=== PATIENT | male | born 1970 | race Caucasian/White ===

== ENCOUNTER 2023-02-17 11:40 | Inpatient (IN) ==
[2023-02-17] MEDS ORDERED: MIDAZOLAM HCL 1 MG/ML 2ML VIAL IV STA ×3 (11:58→13:23)
[2023-02-17] MEDS ORDERED: SODIUM CHLORIDE 0.9% 1,000 ML IV SCH (12:00)
--- NOTE | 2023-02-17 12:10 | Emergency Department Note ---
Impression & Plan Acute alteration in mental status, Respiratory alkalosis, Hyper-reflexia ED Provider Note NAME: JAVI TORO AGE: 52 SEX: M : 1970 ARRIVES VIA: Ambulance INFORMANT: Patient, EMS ED PROVIDER(S): Joshua Malik DO CHIEF COMPLAINT: Altered mental status HPI: The patient is a 52-year-old male who presented to the emergency department by ambulance. History was difficult to obtain as the patient was confused upon arrival. The patient reportedly took extra doses of his Lexapro Lamictal and Seroquel today. He also drank significant amounts of alcohol. EMS was called reportedly by the patient. The patient was felt to be having an anxiety reaction. He was evaluated by EMS. We did receive a prehospital medical command call. The patient was given 2 mg of Ativan prior to arrival. The patient himself appears confused. He is currently denying any suicidal homicidal ideation. He denies having any headache or trauma. He denies having any fever or neck stiffness. ROS: See above HPI for pertinent positives & negatives. A total of 10 systems reviewed and were otherwise negative. PAST MEDICAL HISTORY: See Below PAST SURGICAL HISTORY: See Below FAMILY HISTORY: See Below SOCIAL HISTORY: See Below HOME MEDICATIONS: See Below ALLERGIES: See Below VITALS: See Below PHYSICAL EXAMINATION: GENERAL: The patient is awake and alert. He is very anxious and animated appearing. EYES: The conjunctivae are clear. The pupils are round and reactive. EARS, NOSE, MOUTH AND THROAT: The nose is without any evidence of any deformity. Mucous membranes are dry. NECK: The neck is nontender and supple. RESPIRATORY: Normal respiratory effort is noted there is no evidence of wheezing rhonchi or rales CARDIOVASCULAR: Regular rate and rhythm noted there no murmurs rubs or gallops normal S1 normal S2. GASTROINTESTINAL: The abdomen is soft. Abdomen is nontender. MUSCULOSKELETAL/EXTREMITIES: There is no evidence of gross deformity full range of motion is noted in the hips and shoulders. SKIN: There is no obvious evidence of any rash. There are no petechiae, pallor or cyanosis noted. NEUROLOGIC: Patient is awake alert and oriented to person and place. He is not oriented to time. There is significant neuromuscular hyperactivity. Patellar tendon reflexes are 3+ bilaterally. MEDICAL DECISION MAKING: The patient is a 52-year-old male who presented to the emergency department by ambulance for an evaluation of altered mental status. The initial history was obtained by the prehospital personnel. Further history is obtained from the patient's parents once they arrived in the emergency department. The patient does have a history of alcohol use. He also has a history of drug use. He also has a history of withdrawal from K[employer]. The patient had no reported trauma. He was very confused upon arrival to the emergency department. He was very hyperreflexic. He was confused. His skin was warm. The patient exhibited psychomotor agitation during his time in the emergency department. He was treated symptomatically with IV fluids as well as IV benzodiazepines. He was reevaluated multiple times. No definite cause for his presentation could be found. It is still possible that patient is exhibiting signs of withdrawal from some medication or possibly serotonin syndrome from his other medications that he takes chronically. I discussed the patient's condition [facility] They have agreed to evaluate the patient in the emergency department for further management and disposition. Triage Nursing notes reviewed. Prior medical records reviewed. The patient's entire medication regimen was reviewed with pharmacy Vital Signs: reviewed and remarkable for tachycardia and hypertension. Differential diagnosis: Infection, hypoglycemia, electrolyte abnormalities, overdose, toxicologic, cardiac sources, intracerebral event, neurologic, trauma, as well as other pathologies. ER treatment provided: See below Diagnostics interpreted by me: ECG: EKG was obtained in the emergency department. My interpretation is normal sinus rhythm at 94 bpm. There is no ectopy. There is no acute ST segment abnormalities noted. This was compared to a tracing from November 30, 2019. No changes were noted Cardiac Monitoring: An order was placed for continuous cardiac monitoring. The monitor shows a rate of 108 bpm with sinus tachycardia Laboratory studies: As stated above and show below. Imaging studies: See below. Radiographic imaging was reviewed by myself Consultation(s): I discussed this case with Tylor who is on-call [facility] ED COURSE: Procedures: none PDMP:reviewed and no issues Critical Care: I have personally spent greater than 55 minutes of critical care time in the direct management of this patient. This includes bedside care, interpretation of diagnostic studies, and testing, discussion with consultants, patient, and family members, and other required patient management activities. This 55 minutes is in excess of all separately billable procedures. Past Med/Surg History Medical History Encounter for screening for malignant neoplasm of rectum Encounter for screening for malignant neoplasm of colon Bilateral hip joint arthritis Degenerative arthritis of knee, bilateral History of meniscal tear [place] [facility] [place] [facility] [place] Bilateral chronic knee pain History of alcohol abuse Anxiety Surgical History No pertinent past surgical history Family History Mother Anxiety Depression Father Diabetes Grandmother (Maternal) Lymphoma Grandfather (Maternal) Lymphoma Denies family history of Ovarian cancer Prostate cancer Myocardial infarction Breast cancer Lung cancer Colorectal cancer Social History Smoking Status: Current every day smoker Tobacco Type: E-cigarettes / Vaping Age Started Using Tobacco: 18; Cigarettes Per Day: pt smoked then switched to vaping; Second Hand Exposure: No; Do You Dip or Chew Tobacco: No; Hx Alcohol Use: No (past alcohol abuse) Hx Substance Use: No Preferred Language: Romansh Communication Ability: Effective Visual Impairment: Limited Hearing Ability: Normal 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: No marital status: Current Living Situation: Spouse current occupational status: employed Feels Safe at Home: Yes Childhood Exposure to Second-Hand Smoke: Yes caffeine: Yes Dental Care, Regularly: No Physical Activity Frequency: 1-2 Times per Week Seatbelt Use: always Sunscreen Use: No Allergies Allergies Allergy/AdvReac Type Severity Reaction Status Date / Time Penicillins AdvReac Intermediate GI UPSET Unverified 01/08/22 14:11 Home Meds Home Medications Medication Instructions Recorded Confirmed lamotrigine 100 mg tablet 100 mg PO TID 12/02/21 02/17/23 (Lamictal) docusate sodium 250 mg capsule 250 mg PO HS 02/17/23 02/17/23 escitalopram oxalate 20 mg tablet 40 mg PO DAILY 02/17/23 02/17/23 hydroxyzine pamoate 25 mg capsule 25 mg PO TID PRN KRATOM WITHDRAWAL 02/17/23 02/17/23 naltrexone 50 mg tablet 50 mg PO DAILY 02/17/23 02/17/23 oxcarbazepine 300 mg tablet 300 mg PO BID 02/17/23 02/17/23 quetiapine 50 mg tablet (Seroquel) 50 mg PO HS PRN Sleep 02/17/23 02/17/23 Previous Rx's Medication Instructions Recorded atorvastatin 40 mg tablet 40 mg PO DAILY #90 tabs 04/21/22 diclofenac sodium 75 mg 75 mg PO BID PRN pain #60 tabs 08/18/22 tablet,delayed release Results & Data (ED) Vital Signs Vital Signs - 24 hr 02/17/23 11:47 02/17/23 11:49 02/17/23 11:51 Temperature 36.6 C Temperature Source Axillary Pulse Rate 100 H 100 H 100 H Pulse Rate from SpO2 Sensor 109 H Respiratory Rate 23 20 Respiratory Depth Normal Blood Pressure 168/113 H 168/113 H Blood Pressure Mean 131 131 Pulse Oximetry 94 97 Oxygen Delivery Method Room Air Sepsis Recent Fever Within 48 Hours No Sepsis New/Unexplained Change in Mental Status No Sepsis Action Taken by Nursing No Action Required 02/17/23 12:11 02/17/23 12:16 02/17/23 12:30 Temperature Temperature Source Pulse Rate 108 H 105 H Pulse Rate from SpO2 Sensor 109 H Respiratory Rate 20 18 Respiratory Depth Blood Pressure 161/118 H 168/103 H Blood Pressure Mean 132 124 Pulse Oximetry 100 97 Oxygen Delivery Method Room Air Sepsis Recent Fever Within 48 Hours Sepsis New/Unexplained Change in Mental Status Sepsis Action Taken by Nursing 02/17/23 12:53 02/17/23 13:01 02/17/23 13:23 Temperature Temperature Source Pulse Rate 102 H 96 H 106 H Pulse Rate from SpO2 Sensor 101 H 98 H 106 H Respiratory Rate 18 21 17 Respiratory Depth Blood Pressure 165/104 H 160/102 H 169/108 H Blood Pressure Mean 124 121 128 Pulse Oximetry 96 99 97 Oxygen Delivery Method Sepsis Recent Fever Within 48 Hours Sepsis New/Unexplained Change in Mental Status Sepsis Action Taken by Nursing 02/17/23 13:37 02/17/23 13:46 02/17/23 14:00 Temperature Temperature Source Pulse Rate 106 H 97 H 108 H Pulse Rate from SpO2 Sensor 104 H 99 H 107 H Respiratory Rate 32 H 22 27 H Respiratory Depth Blood Pressure 177/99 H 159/106 H 174/123 H Blood Pressure Mean 125 123 140 Pulse Oximetry 91 93 95 Oxygen Delivery Method Sepsis Recent Fever Within 48 Hours Sepsis New/Unexplained Change in Mental Status Sepsis Action Taken by Nursing 02/17/23 14:00 02/17/23 14:10 Temperature 36.8 C Temperature Source Oral Pulse Rate Pulse Rate from SpO2 Sensor Respiratory Rate Respiratory Depth Blood Pressure 174/123 H Blood Pressure Mean 139 Pulse Oximetry Oxygen Delivery Method Sepsis Recent Fever Within 48 Hours Sepsis New/Unexplained Change in Mental Status Sepsis Action Taken by Correction Medications Current Medication List: was personally reviewed by me Laboratory Data Attestation: I reviewed the patient's lab results. 02/17/23 12:00 02/17/23 12:00 Lab Results 02/17/23 02/17/23 02/17/23 Range/Units 12:00 12:18 13:03 WBC 6.38 (4.8-10.8) K/ul RBC 4.55 L (4.70-6.10) M/uL Hgb 14.5 (14.0-18.0) g/dl Hct 43.1 (42.0-52.0) % MCV 94.7 (80.0-100.0) fL MCH 31.9 (25.0-34.0) pg MCHC 33.6 (32.0-36.0) g/dL RDW Std Deviation 51.5 H (36.4-46.3) fL RDW Coeff of Venancio 16.2 H (11.5-14.5) % Plt Count 223 (130-400) K/uL MPV 9.3 L (9.4-12.4) fL Immature Gran % (Auto) 0.6 % Neut % (Auto) 64.8 % Lymph % (Auto) 20.8 % Edwards % (Auto) 11.3 % Eos % (Auto) 2.0 % Baso % (Auto) 0.5 % Neut # (Auto) 4.13 (1.40-6.50) K/uL Lymph # (Auto) 1.33 (1.20-3.40) K/uL Edwards # (Auto) 0.72 H (0.11-0.59) K/uL Eos # (Auto) 0.13 (0.00-0.50) K/uL Baso # (Auto) 0.03 (0.00-0.20) K/uL Immature Gran # (Auto) 0.04 (0.01-0.20) K/uL PT Cancelled 11.9 INR Cancelled 1.1 ABG pH (7.35-7.45) ABG pCO2 (35-46) mmHg ABG pO2 (80-95) mmHg ABG HCO3 (19-24) mmol/L ABG O2 Saturation (90-95) % ABG Base Excess (-9-1.8) mEq/L Cornell Test (Pos) Oxygen Given Sodium 139 (136-145) mmol/L Potassium 4.1 (3.5-5.1) mmol/L Chloride 103 (98-107) mmol/L Carbon Dioxide 30 (21-32) mmol/L Anion Gap 6 (3-11) BUN 10 (6-23) mg/dl Creatinine 1.13 (0.6-1.4) mg/dl Est Cr Clr Drug Dosing 82.8 ml/min Est GFR ( Amer) 87.4 ml/min Est GFR (Non-Af Amer) 75.4 ml/min BUN/Creatinine Ratio 8.8 L (10-20) Glucose 89 (70-99(Fasting)) mg/dl Calcium 8.3 L (8.6-10.3) mg/dl Magnesium 1.9 (1.7-2.4) mg/dl Total Bilirubin 0.6 (0.2-1.0) mg/dl AST 49 H (13-39) U/L ALT 45 (7-52) U/L Alkaline Phosphatase 81 (34-104) U/L Total Creatine Kinase 76 (30-223) U/L Troponin I High Sens 2.6 (0-20) pg/ml C-Reactive Protein < 0.50 (0-0.5) mg/dl Total Protein 5.7 L (6.0-8.3) gm/dl Albumin 4.1 (3.4-5.0) gm/dl Globulin 1.6 L (2.5-4.0) gm/dl Albumin/Globulin Ratio 2.6 H (0.9-2) Lipase 28 (11-82) U/L Procalcitonin < 0.05 (0-0.5) ng/ml TSH 3.998 (0.300-4.500) uIu/ml Urine Color Yellow Urine Appearance Clear (Clear) Urine pH >= 9.0 H (4.5-7.5) Ur Specific [place] 1.012 (1.000-1.030) Urine Protein Negative (Negative) Urine Glucose (UA) Negative (Negative) Urine Ketones Negative (Negative) Urine Blood Negative (Negative) Urine Nitrite Negative (Negative) Urine Bilirubin Negative (Negative) Urine Urobilinogen Negative (Negative) Ur Leukocyte Esterase Trace H (Negative) Urine WBC (Auto) 1-5 (0-5) /hpf Urine RBC (Auto) 0-4 (0-4) /hpf U Hyaline Cast (Auto) 0 (0-5) /lpf U Epithel Cells (Auto) >30 H (0-5) /lpf Urine Bacteria (Auto) Negative (Negative) Ur Renal Epithelial Cell Not Reportable Salicylates < 3.0 L (3.0-30) mg/dl Urine Opiates Screen Neg (Neg) Ur Methadone, Qual Neg (Neg) Acetaminophen < 3 L (10-30) ug/ml Urine Barbiturates Neg (Neg) Ur Phencyclidine (PCP) Neg (Neg) U Amphetamin/Meth Scrn Neg (Neg) MDMA (Ecstasy) Screen Neg (Neg) U Benzodiazepines Scrn Neg (Neg) Ur Cocaine Metabolite Neg (Neg) U Marijuana (THC) Screen Neg (Neg) Ethyl Alcohol mg/dL < 10.0 (<10.0) mg/dl 02/17/23 Range/Units 13:59 WBC (4.8-10.8) K/ul RBC (4.70-6.10) M/uL Hgb (14.0-18.0) g/dl Hct (42.0-52.0) % MCV (80.0-100.0) fL MCH (25.0-34.0) pg MCHC (32.0-36.0) g/dL RDW Std Deviation (36.4-46.3) fL RDW Coeff of Venancio (11.5-14.5) % Plt Count (130-400) K/uL MPV (9.4-12.4) fL Immature Gran % (Auto) % Neut % (Auto) % Lymph % (Auto) % Edwards % (Auto) % Eos % (Auto) % Baso % (Auto) % Neut # (Auto) (1.40-6.50) K/uL Lymph # (Auto) (1.20-3.40) K/uL Edwards # (Auto) (0.11-0.59) K/uL Eos # (Auto) (0.00-0.50) K/uL Baso # (Auto) (0.00-0.20) K/uL Immature Gran # (Auto) (0.01-0.20) K/uL PT INR ABG pH 7.52 H* (7.35-7.45) ABG pCO2 33 L (35-46) mmHg ABG pO2 126 H (80-95) mmHg ABG HCO3 27 H (19-24) mmol/L ABG O2 Saturation 98.9 H (90-95) % ABG Base Excess 4.3 H (-9-1.8) mEq/L Cornell Test Pos (Pos) Oxygen Given ROOM AIR Sodium (136-145) mmol/L Potassium (3.5-5.1) mmol/L Chloride (98-107) mmol/L Carbon Dioxide (21-32) mmol/L Anion Gap (3-11) BUN (6-23) mg/dl Creatinine (0.6-1.4) mg/dl Est Cr Clr Drug Dosing ml/min Est GFR ( Amer) ml/min Est GFR (Non-Af Amer) ml/min BUN/Creatinine Ratio (10-20) Glucose (70-99(Fasting)) mg/dl Calcium (8.6-10.3) mg/dl Magnesium (1.7-2.4) mg/dl Total Bilirubin (0.2-1.0) mg/dl AST (13-39) U/L ALT (7-52) U/L Alkaline Phosphatase (34-104) U/L Total Creatine Kinase (30-223) U/L Troponin I High Sens (0-20) pg/ml C-Reactive Protein (0-0.5) mg/dl Total Protein (6.0-8.3) gm/dl Albumin (3.4-5.0) gm/dl Globulin (2.5-4.0) gm/dl Albumin/Globulin Ratio (0.9-2) Lipase (11-82) U/L Procalcitonin (0-0.5) ng/ml TSH (0.300-4.500) uIu/ml Urine Color Urine Appearance (Clear) Urine pH (4.5-7.5) Ur Specific [place] (1.000-1.030) Urine Protein (Negative) Urine Glucose (UA) (Negative) Urine Ketones (Negative) Urine Blood (Negative) Urine Nitrite (Negative) Urine Bilirubin (Negative) Urine Urobilinogen (Negative) Ur Leukocyte Esterase (Negative) Urine WBC (Auto) (0-5) /hpf Urine RBC (Auto) (0-4) /hpf U Hyaline Cast (Auto) (0-5) /lpf U Epithel Cells (Auto) (0-5) /lpf Urine Bacteria (Auto) (Negative) Ur Renal Epithelial Cell Salicylates (3.0-30) mg/dl Urine Opiates Screen (Neg) Ur Methadone, Qual (Neg) Acetaminophen (10-30) ug/ml Urine Barbiturates (Neg) Ur Phencyclidine (PCP) (Neg) U Amphetamin/Meth Scrn (Neg) MDMA (Ecstasy) Screen (Neg) U Benzodiazepines Scrn (Neg) Ur Cocaine Metabolite (Neg) U Marijuana (THC) Screen (Neg) Ethyl Alcohol mg/dL (<10.0) mg/dl Administered Medications Discontinued Medications Sodium Chloride (Nss) 1,000 mls @ 999 mls/hr IV .[id number] MONIE Stop: 02/17/23 13:00 Last Admin: 02/17/23 12:05 Dose: 999 mls/hr Documented By: JORGE Midazolam HCl (Midazolam Hcl 1 Mg/Ml 2ml Vial) 1 mg IV NOW STA Stop: 02/17/23 11:59 Last Admin: 02/17/23 12:05 Dose: 1 mg Documented By: JORGE Midazolam HCl (Midazolam Hcl 1 Mg/Ml 2ml Vial) 1 mg IV NOW STA Stop: 02/17/23 12:26 Last Admin: 02/17/23 12:28 Dose: 1 mg Documented By: JORGE Midazolam HCl (Midazolam Hcl 1 Mg/Ml 2ml Vial) 2 mg IV NOW STA Stop: 02/17/23 13:24 Last Admin: 02/17/23 13:30 Dose: 2 mg Documented By: JORGE Imaging Data Attestation: I personally reviewed and interpreted this imaging study as follows: My Impression: 1 view chest x-ray was obtained in the emergency department. My interpretation is no free air, final report below. CT the brain was obtained in the emergency department. My interpretation is no intracranial hemorrhage or mass effect, final report below. Radiologist's Impression: Chest X-Ray 02/17/23 11:59 XR chest 1V portable HISTORY: Overdose. COMPARISON: None. FINDINGS: No pneumothorax. No pleural effusions. There are low lung volumes. No acute fractures. No evidence for pulmonary edema. The cardiac silhouette is mildly enlarged. Small patchy left basilar densities are noted. The right lung is clear. IMPRESSION: Low lung volumes with patchy left basilar densities. This may represent atelectasis or a developing pneumonia. ACT 112: Negative or not required by law. Electronically signed by: Kalia Evans M.D. 02/17/2023 12:[address] 02/17/23 11:59 CT OF THE HEAD WITHOUT CONTRAST CLINICAL HISTORY: Altered mental status. COMPARISON STUDY: No previous studies for comparison. CT DOSE: 1874.62 mGy.cm TECHNIQUE: Helical axial images of the head were obtained without IV contrast. Automated exposure control was utilized for the study. A dose lowering technique was utilized adhering to the principles of ALARA. FINDINGS: This exam is moderately compromised by motion artifact. No acute intracranial hemorrhage, midline shift or mass effect is present. The ventricular system is unremarkable. The basal cisterns are patent. No extra- axial collections are present. There are no findings to suggest acute dural sinus thrombosis or acute territorial infarct. No significant calvarial abnormalities are present. Visualized portions of the sinuses and mastoid air cells are clear. IMPRESSION: Study moderately compromised by motion artifact. No acute intracranial findings. ACT 112: Negative or not required by law. Electronically signed by: Yonis De Leon M.D. 02/17/2023 1:02 PM Discharge Plan Visit Data Chief Complaint: Alcohol Intoxication Stated Complaint: SOB, ETOH, ANXIETY ED Provider: Joshua Malik Discharge Problem: Acute alteration in mental status, Respiratory alkalosis, Hyper-reflexia Patient Disposition: Being Evaluated by Hospitalist Forms Stand Alone Forms: My [facility] [employer] Universal Process Prescriptions Prescriptions: No Action atorvastatin 40 mg tablet 40 mg PO DAILY Qty: 90 3RF diclofenac sodium 75 mg tablet,delayed release (DR/EC) 75 mg PO BID PRN (Reason: pain) Qty: 60 2RF lamotrigine [Lamictal] 100 mg tablet 100 mg PO TID escitalopram oxalate 20 mg tablet 40 mg PO DAILY quetiapine [Seroquel] 50 mg tablet 50 mg PO HS PRN (Reason: Sleep) Rx Instructions: 50-100MG HS PRN oxcarbazepine 300 mg Tablet 300 mg PO BID hydroxyzine pamoate 25 mg Capsule 25 mg PO TID PRN (Reason: KRATOM WITHDRAWAL) naltrexone 50 mg Tablet 50 mg PO DAILY docusate sodium 250 mg Capsule 250 mg PO HS Referrals Referrals: Bertrand Suarez DO [Primary Care Provider] -
[2023-02-17 12:23] LABS: Basophils # (auto) 0.03 K/uL (0.00-0.20); Basophils % (auto) 0.5 %; Eosinophils # (auto) 0.13 K/uL (0.00-0.50); Hematocrit (blood only) 43.1 % (42.0-52.0); Hemoglobin 14.5 g/dl (14.0-18.0); Immature Granulocytes # (auto) 0.04 K/uL (0.01-0.20); Immature Granulocytes % (auto) 0.6 %; Lymphocytes # (auto) 1.33 K/uL (1.20-3.40); Lymphocytes % (auto) 20.8 %; Mean Corpuscular Hemoglobin 31.9 pg (25.0-34.0); Mean Corpuscular Hgb Conc 33.6 g/dL (32.0-36.0); Mean Corpuscular Volume 94.7 fL (80.0-100.0); Mean Platelet Volume 9.3 fL (9.4-12.4); Monocytes # (auto) 0.72 K/uL (0.11-0.59); Monocytes % (auto) 11.3 %; Neutrophils # (auto) 4.13 K/uL (1.40-6.50); Neutrophils % (auto) 64.8 %; Platelet Count 223 K/uL (130-400); RDW Coefficient of Variation 16.2 % (11.5-14.5); RDW Standard Deviation 51.5 fL (36.4-46.3); Red Blood Count 4.55 M/uL (4.70-6.10); White Blood Count 6.38 K/ul (4.8-10.8)
--- NOTE | 2023-02-17 12:32 | XRay Report ---
XR chest 1V portable HISTORY: Overdose. COMPARISON: None. FINDINGS: No pneumothorax. No pleural effusions. There are low lung volumes. No acute fractures. No e vidence for pulmonary edema. The cardiac silhouette is mildly enlarged. Small patchy left basilar den sities are noted. The right lung is clear. IMPRESSION: Low lung volumes with patchy left basilar densities. This may represent atelectasis or a developing p neumonia. ACT 112: Negative or not required by law. Electronically signed by: Kalia Evans M.D. 02/17/2023 12:31 PM
[2023-02-17 12:38] LABS: Appearance Urine Clear (Clear); Bacteria Urine Automated Negative (Negative); Bilirubin Urine Negative (Negative); Blood Urine Negative (Negative); Cast Urine Automated 0 /lpf (0-5); Color Urine Yellow; Epithelial Cell Urine Auto >30 /lpf (0-5); Glucose Urine UA Negative (Negative); Ketones Urine Negative (Negative); Leukocyte Esterase Urine Trace (Negative); Nitrite Urine Negative (Negative); Protein Urine Negative (Negative); RBC Urine Automated 0-4 /hpf (0-4); Specific Gravity Urine 1.012 (1.000-1.030); Urobilinogen Urine Negative (Negative); pH Urine >= 9.0 (4.5-7.5)
[2023-02-17 12:45] LABS: Acetaminophen < 3 ug/ml (10-30); Salicylate < 3.0 mg/dl (3.0-30)
[2023-02-17 12:48] LABS: Alanine Aminotransferase 45 U/L (7-52); Albumin Globulin Ratio 2.6 (0.9-2); Albumin Level 4.1 gm/dl (3.4-5.0); Alkaline Phosphatase 81 U/L (34-104); Anion Gap 6 (3-11); BUN Creatinine Ratio 8.8 (10-20); Bilirubin,Total 0.6 mg/dl (0.2-1.0); Blood Urea Nitrogen 10 mg/dl (6-23); C Reactive Protein < 0.50 mg/dl (0-0.5); Calcium 8.3 mg/dl (8.6-10.3); Carbon Dioxide 30 mmol/L (21-32); Chloride 103 mmol/L (98-107); Creatine Kinase 76 U/L (30-223); Creatinine Clr Calc Pharmacy 82.8 ml/min; Est GFR (African American) 87.4 ml/min; Est GFR (Non-African American) 75.4 ml/min; Globulin 1.6 gm/dl (2.5-4.0); Glucose 89 mg/dl (70-99(Fasting)); Lipase 28 U/L (11-82); Magnesium 1.9 mg/dl (1.7-2.4); Sodium 139 mmol/L (136-145); Total Protein 5.7 gm/dl (6.0-8.3)
[2023-02-17 12:49] LABS: Troponin I High Sensitivity 2.6 pg/ml (0-20)
[2023-02-17 12:55] LABS: Potassium 4.1 mmol/L (3.5-5.1)
[2023-02-17 12:58] LABS: Thyroid Stimulating Hormone 3.998 uIu/ml (0.300-4.500)
[2023-02-17 13:00] LABS: Aspartate Aminotransferase 49 U/L (13-39)
--- NOTE | 2023-02-17 13:03 | CT Scan Report ---
CT OF THE HEAD WITHOUT CONTRAST CLINICAL HISTORY: Altered mental status. COMPARISON STUDY: No previous studies for comparison. CT DOSE: 1874.62 mGy.cm TECHNIQUE: Helical axial images of the head were obtained without IV contrast. Automated exposure con trol was utilized for the study. A dose lowering technique was utilized adhering to the principles o f ALARA. FINDINGS: This exam is moderately compromised by motion artifact. No acute intracranial hemorrhage, m idline shift or mass effect is present. The ventricular system is unremarkable. The basal cisterns ar e patent. No extra-axial collections are present. There are no findings to suggest acute dural sinus thrombosis or acute territorial infarct. No significant calvarial abnormalities are present. Visualiz ed portions of the sinuses and mastoid air cells are clear. IMPRESSION: Study moderately compromised by motion artifact. No acute intracranial findings. ACT 112: Negative or not required by law. Electronically signed by: Yonis De Leon M.D. 02/17/2023 1:02 PM
[2023-02-17 13:36] LABS: Amphetamines+Metham, Urine Neg (Neg); Barbiturates, Urine Neg (Neg); Benzodiazepine, Urine Neg (Neg); Cocaine, Urine Neg (Neg); MDMA (Ecstacy), Urine Neg (Neg); Marijuana, Urine Neg (Neg); Methadone, Urine Neg (Neg); Opiate, Urine Neg (Neg); Phencyclidine, Urine Neg (Neg)
[2023-02-17 13:53] LABS: INR 1.1 (0.9-1.1); Prothrombin Time 11.9 Seconds (9.0-12.0)
--- NOTE | 2023-02-17 13:55 | History & Physical Report ---
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 He reportedly took 12 extra pills of Lexapro, Seroquel, Lamictal the morning of 02/17; however, we are unable to confirm this; Lamictal level ordered, pending He also uses kratom Clinically, patient exhibits psychomotor agitation with twitching on exam; not oriented to location or birthday Head CT was compromised due to motion artifact, but found no acute intracranial findings Ammonia level ordered, pending LFTs ordered, pending Tox screen negative UA negative Procalcitonin WNL Lipase WNL Glucose WNL at 89 TSH WNL ABG pH 7.52, pCO2 low 33, and HCO3 high 27 on arrival Trend VBG q4h Hold all home medications Banana bag x 1; vitamin B1 200mg given in the ED Constipation regimen added Seizure precautions 1:1 precautions Psych consulted A.m. CBC, BMP, PT/INR, mag (2) History of alcohol abuse: Plan: Unsure of when patient's last drink was AWSS protocols with lorazepam as needed for agitation Plan Disposition: Admit to PCU telemetry Full code Keep n.p.o. for now VTE PPx: SCDs History of Present Illness Chief Complaint: Altered mental status Primary Care Provider: DO Deonte Bang is a 52-year-old male with PMH of alcohol abuse, anxiety, depression, spinal stenosis, and HLD. He presented via EMS for altered mental status the morning of 02/17. Patient is a unreliable historian, and is unable to report what happened this morning, explained if he took anything, will confirm/deny thoughts of self-harm. He is responsive to some questions; oriented to name and month, but not location or birthday. He is jittery and agitated in the hospital bed despite receiving Versed 4 mg, as well as lorazepam 2 mg en route. Patient's parents are present at the bedside and provides most of the history. They report that he has no history of stroke, seizure, or epilepsy. They do not know of any recent head injuries, falls, or past similar episodes to what is currently happening. Uncertain if he took his morning medications today. Parents report that the patient has been living with them for the past month after from his ([place]) 1 month ago; he also has history of mental trauma, per parents. Patient is hypertensive at 180/123, mildly tachycardic at 108, and mildly tachypneic at 25 RPM at time of admission. Patient received lorazepam 2 mg via EMS en route. ED course: Midazolam 4 mg NSS 1000 mL Unable to obtain ROS given patient's current mental status. However, patient's parents deny that he has been complaining of any fever, headache, cough, dizziness, chest pain, SOB, abdominal pain, N/V, or urinary symptoms over the past week. Allergies Allergy/AdvReac Type Severity Reaction Status Date / Time Penicillins AdvReac Intermediate GI UPSET Unverified 01/08/22 14:11 Home Medications Medication Instructions Recorded Confirmed Type lamotrigine 100 mg tablet 100 mg PO TID 12/02/21 02/17/23 History (Lamictal) atorvastatin 40 mg tablet 40 mg PO DAILY #90 tabs 04/21/22 02/17/23 Rx diclofenac sodium 75 mg 75 mg PO BID PRN pain #60 tabs 08/18/22 02/17/23 Rx tablet,delayed release docusate sodium 250 mg capsule 250 mg PO HS 02/17/23 02/17/23 History escitalopram oxalate 20 mg tablet 40 mg PO DAILY 02/17/23 02/17/23 History hydroxyzine pamoate 25 mg capsule 25 mg PO TID PRN KRATOM WITHDRAWAL 02/17/23 02/17/23 History naltrexone 50 mg tablet 50 mg PO DAILY 02/17/23 02/17/23 History oxcarbazepine 300 mg tablet 300 mg PO BID 02/17/23 02/17/23 History quetiapine 50 mg tablet (Seroquel) 50 mg PO HS PRN Sleep 02/17/23 02/17/23 History Past Med/Surg History Medical History Encounter for screening for malignant neoplasm of rectum Encounter for screening for malignant neoplasm of colon Bilateral hip joint arthritis Degenerative arthritis of knee, bilateral History of meniscal tear Per [place] [facility] [place] Bilateral chronic knee pain History of alcohol abuse Anxiety Surgical History No pertinent past surgical history Family History Mother Anxiety Depression Father Diabetes Grandmother (Maternal) Lymphoma Grandfather (Maternal) Lymphoma Denies family history of Ovarian cancer Prostate cancer Myocardial infarction Breast cancer Lung cancer Colorectal cancer Social History Smoking Status: Current every day smoker Tobacco Type: E-cigarettes / Vaping Age Started Using Tobacco: 18; Cigarettes Per Day: pt smoked then switched to vaping; Second Hand Exposure: No; Do You Dip or Chew Tobacco: No; Hx Alcohol Use: Yes Alcohol type: beer Hx Substance Use: No Preferred Language: Citizen Of [place] Communication Ability: Effective Visual Impairment: Limited Hearing Ability: Normal Visual Stylist Required: No Beliefs That Will Affect Care: None marital status: Current Living Situation: Family current occupational status: employed Other Information That Helps Us Care for You: No Feels Safe at Home: Yes Safety Concerns: Feels Safe At This Time Childhood Exposure to Second-Hand Smoke: Yes caffeine: Yes Dental Care, Regularly: No Physical Activity Frequency: 1-2 Times per Week Seatbelt Use: always Sunscreen Use: No Review of Systems Review of Systems: See HPI above Physical Exam Physical Exam: General: Patient is agitated, jittery during bed; no rigidity; confused; well- nourished; SpO2 96% on RA HEENT: normocephalic, atraumatic; no scleral icterus; PERRLA; pupils are of normal size; moist mucus membrane; vision and hearing intact Neck: supple; no lymphadenopathy; trachea midline Skin: warm, dry without signs of tenting; no cyanosis; no rashes, bruising, lesions, or erythema noted; not hot to touch CV: chest wall NTP; RRR; S1/S2 normal; no murmurs/rubs/gallops; pulses intact and symmetric at radial, DP, and PT Lungs: no acute respiratory distress; symmetrical chest wall expansion; clear breath sounds across all lung santos w/o adventitious sounds; no wheezing ABD: Soft, NTP; BS present; no rebound/guarding; no ascites; no distention MSK: Jittery, agitated movements while lying supine in bed; no edema noted in the LEs b/l, however scraping and bruises noted on the shins bilaterally Neuro: Oriented to name and month, but not birthday or location; responds to some questions and commands, such as wiggling toes; unable to assess sensation; negative clonus Results & Data Results & Data Vital Signs (Past 12 Hours) Vital Signs Temp Pulse Resp BP Pulse Ox O2 Del Method 02/17/23 13:37 106 H 32 H 177/99 H 91 02/17/23 13:23 106 H 17 169/108 H 97 02/17/23 13:01 96 H 21 160/102 H 99 02/17/23 12:53 102 H 18 165/104 H 96 02/17/23 12:30 105 H 18 168/103 H 02/17/23 12:16 108 H 20 161/118 H 97 02/17/23 12:11 100 Room Air 02/17/23 11:51 36.6 C 100 H 20 168/113 H 97 Room Air 02/17/23 11:49 100 H 23 168/113 H 94 02/17/23 11:47 100 H Laboratory Results Abnormal lab results 02/17/23 02/17/23 Range/Units 12:00 12:18 RBC 4.55 L (4.70-6.10) M/uL RDW Std Deviation 51.5 H (36.4-46.3) fL RDW Coeff of Venancio 16.2 H (11.5-14.5) % MPV 9.3 L (9.4-12.4) fL Bertie # (Auto) 0.72 H (0.11-0.59) K/uL BUN/Creatinine Ratio 8.8 L (10-20) Calcium 8.3 L (8.6-10.3) mg/dl AST 49 H (13-39) U/L Total Protein 5.7 L (6.0-8.3) gm/dl Globulin 1.6 L (2.5-4.0) gm/dl Albumin/Globulin Ratio 2.6 H (0.9-2) Urine pH >= 9.0 H (4.5-7.5) Ur Leukocyte Esterase Trace H (Negative) U Epithel Cells (Auto) >30 H (0-5) /lpf Salicylates < 3.0 L (3.0-30) mg/dl Acetaminophen < 3 L (10-30) ug/ml Diagnostic Findings Chest X-Ray 02/17/23 11:59 XR chest 1V portable HISTORY: Overdose. COMPARISON: None. FINDINGS: No pneumothorax. No pleural effusions. There are low lung volumes. No acute fractures. No evidence for pulmonary edema. The cardiac silhouette is mildly enlarged. Small patchy left basilar densities are noted. The right lung is clear. IMPRESSION: Low lung volumes with patchy left basilar densities. This may represent atelectasis or a developing pneumonia. ACT 112: Negative or not required by law. Electronically signed by: Kalia Evans M.D. 02/17/2023 12:[address] 02/17/23 11:59 CT OF THE HEAD WITHOUT CONTRAST CLINICAL HISTORY: Altered mental status. COMPARISON STUDY: No previous studies for comparison. CT DOSE: 1874.62 mGy.cm TECHNIQUE: Helical axial images of the head were obtained without IV contrast. Automated exposure control was utilized for the study. A dose lowering technique was utilized adhering to the principles of ALARA. FINDINGS: This exam is moderately compromised by motion artifact. No acute intracranial hemorrhage, midline shift or mass effect is present. The ventricular system is unremarkable. The basal cisterns are patent. No extra- axial collections are present. There are no findings to suggest acute dural sinus thrombosis or acute territorial infarct. No significant calvarial abnorm alities are present. Visualized portions of the sinuses and mastoid air cells are clear. IMPRESSION: Study moderately compromised by motion artifact. No acute intracranial findings. ACT 112: Negative or not required by law. Electronically signed by: Yonis De Leon M.D. 02/17/2023 1:02 PM Code Status & VTE Plan Code Status Full code VTE Prophylaxis Plan VTE Prophylaxis will be ordered: Yes Supervising Physician Co-Signing Physician Notes Patient seen and examined, chart reviewed, case discussed with ANUPAMA Sarabia PA-C and I agree with the assessment and plan as above except as otherwise noted Labs and images reviewed Deonte is a 52-year-old male with a past medical history of anxiety/depression, alcohol abuse, hypertension who presents with agitated confusion. He reportedly took a large amount of kratom the evening before, reports he also takes hydroxyzine when he is not on kratom or withdrawing from this and took a dose of this last night. He denies any medication overdoses intentional or unintentional, denies SI/HI, endorses that he has a history of anxiety/depression but that the kratom normally helps with this. He reports he did drink some alcohol last night or maybe this morning but does not remember how much. Medical alcohol on admission is negative. Denies history of seizures and DTs, he is oriented to name, month, and answer some questions appropriately however he is not oriented to year and is a poor historian. Denies recreational drug use or substance coingestion with kratom recently. Denies headache. Was able to bring his chin to his chest without pain or nuchal rigidity, no headache. He is not hyperreflexic and he is not diaphoretic. He is not hyperthermic. He reports he thinks he feels better than, again but does not quite remember. Denies chest pain, chest pressure, shortness of breath, difficulty breathing. Feels constipated but denies abdominal pain. At bedside abdomen is soft, nontender. No spontaneous inducible clonus is present, no ocular clonus. Skin is dry. Pupils are not dilated. Respiration rate decreasing following benzo administration. Does not appear consistent with serotonin syndrome/does not meet Matheus criteria at time of admission,? Excitatory toxidrome with both kratom and hydroxyzine ingestion. Patient has a mixed respiratory/metabolic alkalosis, hyperventilation is improving post b enzos. DDx does include alcohol withdrawal, alcohol level is negative on admission. Patient denies history of alcohol withdrawal in the past. Has received 4 mg of Versed total, 2 mg Ativan prehospital. He is continued on a WSS active protocol to both, for potential alcohol withdrawal and excitatory toxidrome. No signs of meningitis, or infectious etiology at time of admission. Agree with assessment and management as noted PG Care Time/CCT Total # of Minutes Spent Total Time Spent with Patient: Total time spent is greater than 50% in coordination of care (as documented) at patient's floor/unit and/or counseling patient: [place] [address] INT INP/OBS CARE 3/75MIN Patient Type Established History Comprehensive Exam Comprehensive Medical Decision Making High Complexity Diagnoses Altered mental status R41.82 History of alcohol abuse F10.11
[2023-02-17] MEDS ORDERED: THIAMINE HCL 200 MG in SODIUM CHLORIDE 0.9% 50 ML IV STA (14:07)
[2023-02-17 14:12] LABS: Allen Test Pos (Pos); Base Excess ABG 4.3 mEq/L (-9-1.8); HCO3 ABG 27 mmol/L (19-24); Oxygen Saturation ABG 98.9 % (90-95); PCO2 ABG 33 mmHg (35-46); PO2 ABG 126 mmHg (80-95)
[2023-02-17 14:16] LABS: pH ABG 7.52 (7.35-7.45)
[2023-02-17] MEDS ORDERED: MULTI-VITAMIN INFUSION 10 ML, THIAMINE HCL 100 MG, FOLIC ACID 1 MG in SODIUM CHLORIDE 0... IV ONE (15:00)
[2023-02-17 16:43] LABS: Albumin Level 3.6 gm/dl (3.4-5.0); Bilirubin Direct 0.1 mg/dl (0-0.2); Bilirubin,Total 0.8 mg/dl (0.2-1.0); Total Protein 5.1 gm/dl (6.0-8.3)
[2023-02-17] MEDS ORDERED: LORazepam 2 MG in SYRINGE 1 ML IV PRN (17:27)
[2023-02-17] MEDS ORDERED: LORazepam 3 MG in SYRINGE 1.5 ML IV PRN (17:27)
[2023-02-17] MEDS ORDERED: bisacodyL 10 MG SUPP PR PRN (17:27)
[2023-02-17] MEDS ORDERED: Ativan IV Alcohol Withdrawal--Active Protocol IV PRN (17:27)
[2023-02-17] MEDS ORDERED: ACETAMINOPHEN 325 MG TAB PO PRN (17:27)
[2023-02-17 18:38] LABS: Base Excess VBG 2.8 mEq/L; HCO3 VBG 27 mmol/L; Oxygen Saturation VBG 84.9 %; PCO2 VBG 40 mmHg (38-50); PO2 VBG 54 mmHg; pH VBG 7.44 (7.36-7.41)
[2023-02-17] MEDS: DOCUSATE SODIUM/SENNA 50/8.6MG TAB PO SCH (20:29)
[2023-02-17 23:02] LABS: HCO3 VBG 28 mmol/L; Oxygen Saturation VBG 94.5 %; PCO2 VBG 37 mmHg (38-50); PO2 VBG 67 mmHg; pH VBG 7.48 (7.36-7.41)
[2023-02-18 02:31] LABS: HCO3 VBG 27 mmol/L; Oxygen Saturation VBG 82.7 %; PCO2 VBG 39 mmHg (38-50); PO2 VBG 48 mmHg; pH VBG 7.45 (7.36-7.41)
[2023-02-18 02:38] LABS: Basophils # (auto) 0.03 K/uL (0.00-0.20); Basophils % (auto) 0.4 %; Eosinophils # (auto) 0.04 K/uL (0.00-0.50); Eosinophils % (auto) 0.5 %; Hematocrit (blood only) 40.8 % (42.0-52.0); Hemoglobin 14.2 g/dl (14.0-18.0); Immature Granulocytes # (auto) 0.03 K/uL (0.01-0.20); Immature Granulocytes % (auto) 0.4 %; Lymphocytes # (auto) 1.22 K/uL (1.20-3.40); Lymphocytes % (auto) 14.7 %; Mean Corpuscular Hemoglobin 32.2 pg (25.0-34.0); Mean Corpuscular Hgb Conc 34.8 g/dL (32.0-36.0); Mean Corpuscular Volume 92.5 fL (80.0-100.0); Mean Platelet Volume 9.2 fL (9.4-12.4); Monocytes # (auto) 0.74 K/uL (0.11-0.59); Monocytes % (auto) 8.9 %; Neutrophils # (auto) 6.23 K/uL (1.40-6.50); Neutrophils % (auto) 75.1 %; Platelet Count 226 K/uL (130-400); RDW Coefficient of Variation 15.9 % (11.5-14.5); RDW Standard Deviation 49.9 fL (36.4-46.3); Red Blood Count 4.41 M/uL (4.70-6.10); White Blood Count 8.29 K/ul (4.8-10.8)
[2023-02-18 02:52] LABS: BUN Creatinine Ratio 9.2 (10-20); Creatinine Clr Calc Pharmacy 108.2 ml/min; Est GFR (African American) 116.6 ml/min; Est GFR (Non-African American) 100.6 ml/min; Magnesium 1.9 mg/dl (1.7-2.4); Potassium 3.5 mmol/L (3.5-5.1)
[2023-02-18 03:10] LABS: INR 1.1 (0.9-1.1); Prothrombin Time 11.5 Seconds (9.0-12.0)
[2023-02-18] MEDS: POLYETHYLENE (MIRALAX) 17 GM PACK PO SCH (08:59)
[2023-02-18] MEDS: LORazepam 1 MG in SYRINGE 0.5 ML IV PRN ×2 (13:09→19:25)
--- NOTE | 2023-02-18 14:43 | Discharge Summary ---
Date of Service February 19, 2023 Admission HPI Per Admitting Provider Deonte is a 52-year-old male with PMH of alcohol abuse, anxiety, depression, spinal stenosis, and HLD. He presented via EMS for altered mental status the morning of 02/17. Patient is a unreliable historian, and is unable to report what happened this morning, explained if he took anything, will confirm/deny thoughts of self-harm. He is responsive to some questions; oriented to name and month, but not location or birthday. He is jittery and agitated in the hospital bed despite receiving Versed 4 mg, as well as lorazepam 2 mg en route. Patient's parents are present at the bedside and provides most of the history. They report that he has no history of stroke, seizure, or epilepsy. They do not know of any recent head injuries, falls, or past similar episodes to what is currently happening. Uncertain if he took his morning medications today. Parents report that the patient has been living with them for the past month after from his ([place]) 1 month ago; he also has history of mental trauma, per parents. Patient is hypertensive at 180/123, mildly tachycardic at 108, and mildly tachypneic at 25 RPM at time of admission. Patient received lorazepam 2 mg via EMS en route. ED course: Midazolam 4 mg NSS 1000 mL Unable to obtain ROS given patient's current mental status. However, patient's parents deny that he has been complaining of any fever, headache, cough, dizziness, chest pain, SOB, abdominal pain, N/V, or urinary symptoms over the past week. Principal Diagnosis Excitatory Toxidrome Discharge Exam General: A&Ox3. NAD. Cooperative. TP linear, goal direct. Denies SI/HI/AH/VH. Not responding to verbal stimula. Speech with normal volume and prosody. HEENT: Atraumatic, normocephalic. PERLAA. EoM intact. Vision./hearing intact Pulm: CTAB A&P. -wheezes, -rales, -rhonchi. Symmetrical chest rise. No increased work of breathing. No respiratory distress. Cardiac: RRR, -mrg. Radial pulses intact and symmetrical. Abdominal: Nontender, nondistended, soft. BS present. Discharge Data Allergies Allergy/AdvReac Type Severity Reaction Status Date / Time Penicillins AdvReac Intermediate GI UPSET Unverified 01/08/22 14:11 Consultations 02/17/23 13:59 ED Decision to Admit Stat 02/17/23 17:27 Consult Psychiatry Routine Ordered Studies 02/17/23 11:59 CT head/brain wo con Stat Hospital Course (1) Altered mental status: Deonte was seen for acute confusion in the setting of suspected alcohol intoxication, alcohol levels on admission were negative. Patient did endorse kratom ingestion in addition to his prescribed oxcarbazepine, Seroquel, lamotrigine, Lexapro. Initially reported that he may have taken hydroxyzine however when mentation clears he reports that he did not take any of this but may have taken 1-2 extra Seroquel evening prior to symptoms. He reports he has not had his medications adjusted in several weeks and has been stable on these medications. Normally takes kratom very regularly and notes that the combination of kratom and alcohol makes his mood better. He denies history of alcohol withdrawal and is gone several days in a row without alcohol recently, but endorses that his current episode which may-worsened in the setting of alcohol use interfered with work and he would like to stop drinking. Patient felt that he could do this on his own as he had before and did not need additional alcohol cessation resources for this, noted that he is prescribed naltrexone which she is comfortable continuing. He would like to follow-up with his primary care provider and [facility] for continued care. On admission he was evaluated for potential serotonin syndrome however he was not hyperthermic, was not rigid, did not have inducible clonus and did not meet the diagnostic criteria for serotonin syndrome. 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 He had a transient mixed predominant respiratory alkalosis and mild underlying metabolic alkalosis which improved on serial VBG's. He was treated with a WSS protocol overnight and did well after returning to his normal baseline state day of discharge. he was recommended to discontinue kratom use and to avoid alcohol. No medication changes at this time recommended on consulted with psychiatry, pt recommended to followup with his 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 He was agreeable to this and will follow-up with his PCP, psychiatrist, and [facility] for further care. At time of discharge he was mentating normally, alert and oriented x 4, and had not alert goal-directed thought process. Pt noted that while he feels his anxiety and depression has been intermittently worse lately he has a lot of things in his life that are actually better including some online dating and felt his depression was mildly worse but without any SI/HI. He did not show signs of alcohol withdrawal after repid improvement day after admission. (2) History of alcohol abuse: Total Time Total Time Spent Total Time Spent (In Minutes): Time spend day of discharge 55 minutes including direct patient care, documentation, review of labs and images, and coordination of care. Discharge Plan Discharge Items Patient Disposition: Home - Self-Care Reason For Visit: ALTERED MENTAL STATUS Discharge Diagnosis: Excitatory Toxidrome Activity: Resume your previous activity Non-emergency contact: Primary Care Provider Call non-emergency contact if: you have any medication questions Follow-up/Referrals: Bertrand Suarez DO [Primary Care Provider] - 02/26/23 11:30 am Diet: Regular Addtl Attending Provider Instructions: You are seen in the hospital for acute confusion. You had returned to a normal baseline and had resolution of your confusion day of discharge. Is recommended that you remain abstinent from both alcohol and kratom as these may have also contributed to your confusion. You are seen by psychiatry, no other medication changes were recommended at this time as this can precipitate withdrawal symptoms. Follow-up appointments are being scheduled for you with [facility], psychiatry, and your primary care physician. He received a call to confirm these appointments within the next 2 business days. If you do not receive a call, please contact each of your providers directly for follow-up appointment; you should be seen within the next 2 weeks. If you develop any new or worsening symptoms including fever, chills, sweats, chest pain, chest pressure, difficulty breathing, uncontrolled nausea/vomiting, rash, wheezing, passing out or nearly passing out, bleeding, black/bloody bowel movements, or other new or concerning symptoms please call your primary care physician, or call 911 for re-evaluation in the emergency department if you are very concerned. Pending Studies at Discharge: No Stand-Alone Forms: My [place], Work/School Release, Smoking Ce ssation Medications and DC Order Prescriptions: Continued atorvastatin 40 mg tablet 40 mg PO DAILY Qty: 90 3RF diclofenac sodium 75 mg tablet,delayed release (DR/EC) 75 mg PO BID PRN (Reason: pain) Qty: 60 2RF lamotrigine [Lamictal] 100 mg tablet 100 mg PO TID escitalopram oxalate 20 mg tablet 40 mg PO DAILY quetiapine [Seroquel] 50 mg tablet 50 mg PO HS PRN (Reason: Sleep) Rx Instructions: 50-100MG HS PRN oxcarbazepine 300 mg Tablet 300 mg PO BID hydroxyzine pamoate 25 mg Capsule 25 mg PO TID PRN (Reason: KRATOM WITHDRAWAL) naltrexone 50 mg Tablet 50 mg PO DAILY docusate sodium 250 mg Capsule 250 mg PO HS Discharge Orders: Discharge Order (Routine); Ordered 02/19/23 Ordered By: Deonte Barros/Other Patient Handouts: Addiction Disease, Addiction: Your Treatment Options, Addiction Recovery Relapse Admission Data Admit Date/Time: 02/17/23 14:48 Attending Provider: Deonte Marcus Admit Provider: Deonte Marcus Primary Care Provider: Bertrand Suarez Other Providers: Yahaira Garcia; Shantal Johnson; Radhames Knutson; Magdy Ibrahim Other Interventions: Discharge Summary Assessment (RN) Last Done: 02/19/23 11:09 Coding Level of Care Code 68524 INP/OBS DISCH >30 MIN Diagnoses Altered mental status R41.82 History of alcohol abuse F10.11
--- NOTE | 2023-02-18 16:11 | Hospitalist Progress Note ---
Date of Service February 18, 2023 Assessment & Plan (1) Altered mental status: Plan: Deonte was seen for acute confusion in the setting of suspected alcohol intoxication, alcohol levels on admission were negative. Patient did endorse kratom ingestion in addition to his prescribed oxcarbazepine, Seroquel, lamotrigine, Lexapro. Initially reported that he may have taken hydroxyzine however when mentation clears he reports that he did not take any of this but may have taken 1-2 extra Seroquel evening prior to symptoms. He reports he has not had his medications adjusted in several weeks and has been stable on these medications. Normally takes kratom very regularly and notes that the combination of kratom and alcohol makes his mood better. He denies history of alcohol withdrawal and is gone several days in a row without alcohol recently, but endorses that his current episode which may-worsened in the setting of alcohol use interfered with work and he would like to stop drinking. Patient felt that he could do this on his own as he had before and did not need additional alcohol cessation resources for this, noted that he is prescribed naltrexone which she is comfortable continuing. He would like to follow-up with his primary care provider and [facility] for continued care. On admission he was evaluated for potential serotonin syndrome however he was not hyperthermic, was not rigid, did not have inducible clonus and did not meet the diagnostic c suraj for serotonin syndrome. 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 He had a transient mixed predominant respiratory alkalosis and mild underlying metabolic alkalosis which improved on serial VBG's. He was treated with a WSS protocol overnight and did well after returning to his normal baseline state day of discharge. he was recommended to discontinue kratom use, temporarily hold Seroquel as extra doses of this were the only reported change from his normal stable baseline, and to avoid alcohol. He was agreeable to this and will follow-up with his PCP, psychiatrist, and [facility] for further care. Patient seen at the bedside, as he was very confused and is somewhat nervous about recurrence and medication adjustments does not feel comfortable returning home this evening and would like to have his medications resumed and monitored overnight prior to discharge home. Given fairly severe confusion/encephalopathy which may have been precipitated in part by medications, and with kratom, will restart at this evening and target morning discharge if stable and doing well. Patient is pending consultation with psychiatry, did discuss his care briefly would defer medication changes to his outpatient psychiatrist as ongoing management of his depression/anxiety and multiple medications will require long-term care and adjustments over many weeks to months. His Seroquel has been held. Lexapro, Lamictal, oxy carbamazepine continue. Patient requested update be given to his family to which they were called however contact number [phone] rang through without voicemail set up. (2) History of alcohol abuse: Plan: Naltrexone continued Admission and Anticipated Discharge Date Admission Date: February 17, 2023 Subjective Seen at the bedside. Patient feels improved and mentating normally. Alert and oriented x 4. Thought process linear and goal-directed. Reports that he has had ongoing struggles with anxiety/depression and takes kratom with alcohol as this makes him feel like what he thinks normal should be. Has been on multiple medications for depression although he feels he has had incomplete response from these and has some frustration from continued depression. Denies SI/HI/VH/AH. Does report he has good things in his life such as his job and has been recently doing some online dating, but depression persists. He feels the biggest benefit to his depression has been the kratom/alcohol but is aware that he cannot continue using these both due to alcohol interfering with work and the risk of side effects from kratom. Patient reports that while he does sometimes drink and this helps with his depression, he has not had alcohol withdrawal and has recently been many days without alcohol and any withdrawal symptoms Physical Exam Physical Exam: General: A&Ox3. NAD. Cooperative. TP linear, goal direct. Denies SI/HI/AH/VH. Not responding to verbal stimula. Speech with normal volume and prosody. HEENT: Atraumatic, normocephalic. PERLAA. EoM intact. Vision./hearing intact Pulm: CTAB A&P. -wheezes, -rales, -rhonchi. Symmetrical chest rise. No increased work of breathing. No respiratory distress. Cardiac: RRR, -mrg. Radial pulses intact and symmetrical. Abdominal: Nontender, nondistended, soft. BS present. Results & Data Results & Data Vital Signs (Past 12 Hours) Vital Signs Temp Pulse Pulse Resp BP Pulse Ox O2 Del Method 02/18/23 15:39 36.9 C 81 18 149/88 H 97 Room Air 02/18/23 15:00 86 02/18/23 11:32 37.1 C 72 18 143/87 H 99 Room Air 02/18/23 07:32 36.5 C 83 18 153/93 H 99 Room Air PG Care Time/CCT Total # of Minutes Spent Total Time Spent with Patient: Total time spent is greater than 50% in coordination of care (as documented) at patient's floor/unit and/or counseling patient: Coding Level of Care Code 56223 SUB INP/OBS CARE 2/35MIN Diagnoses Altered mental status R41.82 History of alcohol abuse F10.11
--- NOTE | 2023-02-18 17:46 | Psychiatric Consultation ---
Date of Consultation February 18, 2023 Impression / Recommendations Impression 52 y/o man who, based on his medication regimen, seems likely to have a history of some sort of mood disorder but denies any such history. He used a combination of kratom, alcohol, and prescription drugs including 2 anticonvulsants and became confused and incoherent. Today he is alert and reports no significant psychiatric symptoms. Pt does ask me multiple times what medications I think he should be taking, even though each time I tell him "not kratom and not alcohol" but that his outpatient regimen is the result of adjustments made by outpatient prescriber with whom he has an ongoing treatment relationship. I recommended he not change or stop any of them since there are 3 from which he could have withdrawal or discontinuation symptoms. Overall I spent a total of 87 minutes on the floor for this consultation assessment including review of chart records, review of test results, direct evaluation of the patient [id number], counseling the patient, medication education with the patient, risk assessment, discussion with the psychiatric liaison nurse, and documentation in the electronic health record. (1) Substance use disorder: (2) Alcohol use disorder: Plan No change in psychiatric medications is recommended Psych History Identifying Data JAVI TORO is a 52-year-old M with a history of kratom use disorder and alcohol use disorder, admitted on 02/17/2023 for AMS. Consult is by the hospitalist service for "AMS". Chief Complaint "I'm OK". History of Present Illness 52 y/o man brought by ambulance from work after he became incoherent. It was reported he may have taken 1 extra tablet of some of his medications. Yesterday pt was unarousable. Today he confirms that he took 1 extra dose each of quetiapine and escitalopram. He's been using kratom for many years, often combining it with alcohol, and believes this accounts for this confusion yesterday. This is also something that's happened several times before. Pt isn't sure just why he's taking the reported medications of escitalopram 40 mg daily, lamotrigine 100 mg TID, oxcarbazepine 300 mg BID. He says he was given naltrexone 50 mg "to help with kratom withdrawal" but hasn't taken it yet and is taking quetiapine 50 mg for sleep. I asked about depression symptoms or episodes of kwame, which he denied. He did endorse panic episodes (for which escitalopram could be effective), but I was unable to tell why he's on the mood stabilizing anticonvulsant, and especially on two. Pt says he's "been through rehab for kratom" several times. He says he only drinks to avoid kratom withdrawal, but also says he uses kratom every day. He denies any history of complicated alcohol withdrawal. Has substantial current marital stressors currently that may have led him to increase doses of kratom and alcohol. Absolutely denies that taking a small amount of medication in excess of what was prescribed was an "overdose" and denies any suicidal thoughts currently or in the past. Past Psychiatric History Previous Psych History: unclear Allergies Allergy/AdvReac Type Severity Reaction Status Date / Time Penicillins AdvReac Intermediate GI UPSET Unverified 01/08/22 14:11 Home Medications Medication Instructions Recorded Confirmed Type lamotrigine 100 mg tablet 100 mg PO TID 12/02/21 02/17/23 History (Lamictal) atorvastatin 40 mg tablet 40 mg PO DAILY #90 tabs 04/21/22 02/17/23 Rx diclofenac sodium 75 mg 75 mg PO BID PRN pain #60 tabs 08/18/22 02/17/23 Rx tablet,delayed release docusate sodium 250 mg capsule 250 mg PO HS 02/17/23 02/17/23 History escitalopram oxalate 20 mg tablet 40 mg PO DAILY 02/17/23 02/17/23 History hydroxyzine pamoate 25 mg capsule 25 mg PO TID PRN KRATOM WITHDRAWAL 02/17/23 02/17/23 History naltrexone 50 mg tablet 50 mg PO DAILY 02/17/23 02/17/23 History oxcarbazepine 300 mg tablet 300 mg PO BID 02/17/23 02/17/23 History quetiapine 50 mg tablet (Seroquel) 50 mg PO HS PRN Sleep 02/17/23 02/17/23 History Patient History Medical History (Updated 02/18/23 @ 18:02 by Magdy Ibrahim MD) Alcohol use disorder Substance use disorder kratom Encounter for screening for malignant neoplasm of rectum Encounter for screening for malignant neoplasm of colon Bilateral hip joint arthritis Degenerative arthritis of knee, bilateral History of meniscal tear Per MRI at [facility] [place] 03/07/2014 Bilateral chronic knee pain History of alcohol abuse Anxiety Surgical History No pertinent past surgical history Family History Mother Anxiety Depression Father Diabetes Grandmother (Maternal) Lymphoma Grandfather (Maternal) Lymphoma Denies family history of Ovarian cancer Prostate cancer Myocardial infarction Breast cancer Lung cancer Colorectal cancer Social History Smoking Status: Current every day smoker Tobacco Type: E-cigarettes / Vaping Age Started Using Tobacco: 18; Cigarettes Per Day: pt smoked then switched to vaping; Second Hand Exposure: No; Do You Dip or Chew Tobacco: No; Hx Alcohol Use: Yes Alcohol type: beer Hx Substance Use: No Preferred Language: [place] Communication Ability: Effective Visual Impairment: Limited Hearing Ability: Normal 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 Support 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: No Beliefs That Will Affect Care: None marital status: Current Living Situation: Family current occupational status: employed Feels Safe at Home: Yes Childhood Exposure to Second-Hand Smoke: Yes caffeine: Yes Dental Care, Regularly: No Physical Activity Frequency: 1-2 Times per Week Seatbelt Use: always Sunscreen Use: No Physical Exam Psychiatric: Orientation: alert, oriented to person, oriented to place, oriented to time and cooperative Apperance: appropriately dressed, appropriately groomed and appeared stated age Eye Contact: good eye contact Motor Behavior: no abnormal motor movements Speech: normal rate/rhythm/volume of speech Affect: euthymic affect Mood: + anxious mood and + dysphoric mood Thought Process: linear/logical thought process and thought association intact Thought Content: reality based without delusions Suicidal Thoughts: denies suicidal thoughts, denies suicidal plan and denies suicidal intent Homicidal Thoughts: denies homicidal thoughts Hallucinations: no auditory hallucinations and no visual hallucinations Cognition: recent memory grossly intact, remote memory grossly intact, attention grossly intact and language grossly intact Estimated Intelligence: consistent with education level Insight: + limited insight Judgment: + limited judgement Vital Signs (Past 24 Hours): Last Vital Signs Temp 36.9 C 02/18/23 15:39 Pulse 81 02/18/23 15:39 Resp 18 02/18/23 15:39 BP 149/88 H 02/18/23 15:39 Pulse Ox 97 02/18/23 15:39 O2 Del Method Room Air 02/18/23 15:39 Review of Systems Psychiatric: + anxiety, + panic attacks, + difficulty concentrating and + substance abuse; no hopelessness, no suicidal ideation, no paranoia and no hallucinations Results & Data (PSY) Medications Administered Lorazepam 1 mg/ Syringe 1 mls @ 2 mls/min IV UD PRN; Protocol PRN Reason: EtOH Withdrawal AWSS Score 6,7 Stop: 03/19/23 17:26 Last Admin: 02/18/23 13:09 Dose: 2 mls/min Documented By: DLF Polyethylene Glycol (Polyethylene (Miralax) 17 Gm Pack) 17 gm PO DAILY MONIE Stop: 03/20/23 08:59 Last Admin: 02/18/23 08:59 Dose: Not Given Documented By: BINF Senna/Docusate Sodium (Docusate Sodium/Senna 50/8.6mg Tab) 2 tab PO HS MONIE Stop: 03/19/23 20:59 Last Admin: 02/17/23 20:29 Dose: Not Given Documented By: BRIM STRETCHER Coding Level of Care Code 8[address] [facility] Intl Hosp Care Lvl 3 Diagnoses Substance use disorder F19.90 Alcohol use disorder F10.90 Time Spent (min) 87
[2023-02-18] MEDS: DOCUSATE SODIUM/SENNA 50/8.6MG TAB PO SCH (20:14)
[2023-02-18] MEDS: OXcarbazepine 150 MG TABLET PO SCH (20:14)
[2023-02-18] MEDS: lamoTRIgine 100 MG TAB PO SCH (20:15)
[2023-02-19 07:53] LABS: BUN Creatinine Ratio 13.8 (10-20); Basophils # (auto) 0.04 K/uL (0.00-0.20); Basophils % (auto) 0.4 %; Calcium 7.7 mg/dl (8.6-10.3); Creatinine Clr Calc Pharmacy 108.2 ml/min; Eosinophils # (auto) 0.08 K/uL (0.00-0.50); Eosinophils % (auto) 0.9 %; Est GFR (African American) 116.6 ml/min; Est GFR (Non-African American) 100.6 ml/min; Hematocrit (blood only) 39.1 % (42.0-52.0); Hemoglobin 13.9 g/dl (14.0-18.0); Immature Granulocytes # (auto) 0.04 K/uL (0.01-0.20); Immature Granulocytes % (auto) 0.4 %; Lymphocytes # (auto) 1.66 K/uL (1.20-3.40); Mean Corpuscular Hemoglobin 32.5 pg (25.0-34.0); Mean Corpuscular Hgb Conc 35.5 g/dL (32.0-36.0); Mean Corpuscular Volume 91.4 fL (80.0-100.0); Mean Platelet Volume 9.5 fL (9.4-12.4); Monocytes # (auto) 0.87 K/uL (0.11-0.59); Monocytes % (auto) 9.4 %; Neutrophils # (auto) 6.52 K/uL (1.40-6.50); Neutrophils % (auto) 70.9 %; Platelet Count 251 K/uL (130-400); Potassium 3.6 mmol/L (3.5-5.1); RDW Coefficient of Variation 16.5 % (11.5-14.5); RDW Standard Deviation 53.1 fL (36.4-46.3); Red Blood Count 4.28 M/uL (4.70-6.10); White Blood Count 9.21 K/ul (4.8-10.8)
[2023-02-19] MEDS ORDERED: QUEtiapine FUMARATE 25 MG TABLET PO PRN (08:19)
[2023-02-19] MEDS: lamoTRIgine 100 MG TAB PO SCH (08:45)
[2023-02-19] MEDS: OXcarbazepine 150 MG TABLET PO SCH (08:46)
[2023-02-19] MEDS: POLYETHYLENE (MIRALAX) 17 GM PACK PO SCH (08:49)
[2023-02-19] MEDS ORDERED: NALTREXONE HCL 50 MG TAB PO SCH (09:00)
[2023-02-19] MEDS ORDERED: ATORVASTATIN 40 MG TAB PO SCH (09:00)
[2023-02-19] MEDS ORDERED: ESCITALOPRAM OXALATE 20 MG TAB PO SCH (09:00)
--- NOTE | 2023-02-19 19:05 | Electrocardiogram Report ---
Test Reason : Blood Pressure : / mmHG Vent. Rate : 094 BPM Atrial Rate : 094 BPM P-R Int : 194 ms QRS Dur : 102 ms QT Int : 378 ms P-R-T Axes : 071 056 068 degrees QTc Int : 472 ms Normal sinus rhythm Normal ECG When compared with ECG of 30-NOV-2019 05:46, No significant change was found Confirmed by Moises Hammond ([id number]) on 02/19/2023 7:05:09 PM Referred By: Confirmed By:Moises Hammond
[2023-02-22 18:52] LABS: Lamictal(Lamotrigine) 3.6 mcg/mL (2.5-15.0)
== END 2023-02-19 11:54 | disposition home or self-care (01) | DRG 918 ==
LOC: ED 11:40 → 2S 14:48